=== PATIENT | male | born 1955 | race Caucasian/White ===

== ENCOUNTER → 2019-07-11 | Outpatient (CLI) | payer OTHER ==
[2019-07-11 13:01] LABS: Basophils % (A) 0 %; Eosinophils # (A) 0.3 k/uL (0-0.7); Eosinophils % (A) 4 %; HCT 48.5 % (39.0-53.0); HGB 16.4 gm/dL (13.0-17.5); Lymphocytes # (A) 2.3 k/uL (1.0-4.8); Lymphocytes % (A) 30 %; MCH 31.2 pg (25.0-35.0); MCHC 33.8 g/dL (31.0-37.0); MCV 92.3 fL (80.0-100.0); Mean Platelet Volume 7.6; Monocytes # (A) 0.4 k/uL (0-1.0); Monocytes % (A) 5 %; Neutrophils # (A) 4.4 k/uL (1.3-7.7); Neutrophils % (A) 57 %; Platelet Count 250 k/uL (150-450); RBC 5.25 m/uL (4.30-5.90); RDW 13.2 % (11.5-15.5); WBC 7.7 k/uL (3.8-10.6)
== END ==
LOC: LABPAT 11:41
PROVIDERS: ATTEND Anesthesiology
DX: Z01.812 Encounter for preprocedural laboratory examination (principal)
CPT/HCPCS: 36415; 85025

== ENCOUNTER 2019-07-13 12:08 | Day surgery (SDC) | payer OTHER ==
[2019-07-10 14:22] VITALS: BMI 25.8
[~2019-07-13 12:08] MED LIST: DEXAMETHASONE SOD PHOSPHATE 10 MG/ML 1 ML VIAL IV ONE; HEPARIN SODIUM,PORCINE 5,000 UNIT/ML 1 ML VIAL SQ ONE; LIDOCAINE 1% 20 ML VIAL (10MG/ML) FOR IV START INTRADERMA PRN; MIDAZOLAM 2 MG/2 ML VIAL IV PRN; fentaNYL (PF) 50 MCG/ML 2 ML AMP IV PRN
[2019-07-13] MEDS: LACTATED RINGERS 1,000 ML IV SCH (13:10)
[2019-07-13] MEDS ORDERED: LIDOCAINE 1% 20 ML VIAL (10MG/ML) FOR IV START INTRADERMA ONE (13:10)
[2019-07-13] MEDS ORDERED: ONDANSETRON 4 MG/2 ML VIAL IVP ONE (13:15)
[2019-07-13 13:16] VITALS: RESP 16
[2019-07-13] MEDS ORDERED: LIDOCAINE 1% INJ 10MG/ML (20 ML MDV) ONE (14:02)
[2019-07-13] MEDS ORDERED: MIDAZOLAM 2 MG/2 ML VIAL ONE (14:02)
[2019-07-13] MEDS ORDERED: NEOSTIGMINE 1 MG/ML 10 ML VIAL ONE (14:02)
[2019-07-13] MEDS ORDERED: SUCCINYLCHOLINE CHLORIDE 100 MG/5 ML SYR IV ONE (14:02)
[2019-07-13] MEDS ORDERED: fentaNYL (PF) 50 MCG/ML 2 ML AMP ONE (14:02)
[2019-07-13] MEDS ORDERED: ROCURONIUM BROMIDE 10 MG/ML 5 ML VIAL IV ONE (14:02)
[2019-07-13] MEDS ORDERED: KETOROLAC 30 MG/ML 1 ML VIAL ONE (14:02)
[2019-07-13] MEDS ORDERED: hydrALAZINE HCL 20 MG/ML 1 ML VIAL ONE (14:02)
[2019-07-13] MEDS ORDERED: PROPOFOL 10 MG/ML 20 ML VIAL IV ONE (14:02)
[2019-07-13] MEDS ORDERED: GLYCOPYRROLATE 0.2 MG/ML 2 ML VIAL ONE (14:02)
--- NOTE | 2019-07-13 14:03 | P.ANPRN ---
Procedure Note - Anesthesia - Nerve Block Performed Bilateral Transversus Abdominis Single Time Out Performed: Yes Date of Procedure: 07/13/19 Procedure Start Time: 13:50 Procedure Stop Time: 14:04 Location of Patient: PreOp Indication: Acute Post-Operative Pain, Requested by Surgeon Sedation Type: Sedate with meaningful contact maintained Preparation: Sterile Prep, Sterile Dressing Position: Supine Catheter: None Needle Types: On-Q Needle Gauge: 20 Ultrasound used to visualize needle placement: Yes Ultrasound used to observe medication spread: Yes Injectate: Other (see comment) (ropivacaine 0.25% 25 ml per side) Blood Aspirated: No Pain Paresthesia on Injection Noted: No Resistance on Injection: Normal Image Stored and Saved: Yes Events: Uneventful and Well Tolerated
[2019-07-13] MEDS ORDERED: BUPIVACAIN-EPI 0.5%-1:200,000 30 ML VIAL SQ ONE ×2 (14:28)
[2019-07-13 16:07] VITALS: TEMP 97.1
--- NOTE | 2019-07-13 16:39 | P.OP ---
Date of Procedure: 07/13/19 Preoperative Diagnosis: Bilateral inguinal hernia Postoperative Diagnosis: Bilateral inguinal hernia Procedure(s) Performed: Robotic bilateral inguinal hernia repair with mesh Anesthesia: MARK Surgeon: Kun Canela Pathology: none sent Condition: stable Disposition: same day Indications for Procedure: 63-year-old male presented to the surgery clinic with complaints of groin pain. On exam, he was noted to have an extremely large right-sided inguinal hernia that likely contained bowel on exam. He also was noted to have a left-sided inguinal hernia that was large, however smaller than the right side. Secondary to this, recommendation was made for bilateral inguinal hernia repair. The patient was explained the risks, benefits and alternatives to the procedure and did provide consent prior to attending the operating suite. Operative Findings: Bilateral inguinal hernia, right side indirect hernia containing loops of small bowel, left-sided indirect inguinal hernia Description of Procedure: The patient was brought back to the operating suite and placed in supine position. After general endotracheal anesthesia was induced, a Greer catheter was placed under sterile conditions. Arms were then tucked to the sides bilaterally and all pressure points were padded. SCDs were also placed in his bilateral lower extremities and were working throughout the entire case. Preoperative antibiotics were given prior to the incision. A timeout was performed with all team members in agreement with correct patient, procedure and location. A supraumbilical incision was made approximately 20 cm superior to the pubic symphysis. The abdomen was then entered under direct visualization with a Visiport. At this point pneumoperitoneum was achieved. 2 additional incisions were made approximately 11 cm lateral to the supraumbilical incision and 8 mm trochars were placed. The patient was then placed in Trendelenburg position and the hernia sites were clearly visualized bilaterally. The left-sided inguinal hernia was noted to be an indirect hernia. The right-sided inguinal hernia was noted to be a large indirect inguinal hernia that contained multiple loops of small bowel. The bowel was manually reduced. 30 mL of local anesthetic was then placed in the anticipated peritoneal layers of the anticipated flaps. The robot was then docked appropriately. Incision was then made just lateral to the medial umbilical ligament on the right side with the monopolar scissors and the peritoneal flap was created and was taken down towards Hunter's ligament.The flap was then extended laterally. Attention was then turned to the indirect inguinal hernia. The sac was then freed from the cord all while preserving the cord structures. At this point the indirect hernia was reduced. Once the entire space was appropriately dissected out, attention was turned to the left side. Incision was then made just lateral to the medial umbilical ligament on the left side with the monopolar scissors and the peritoneal flap was created and was taken down towards Hunter's ligament.The flap was then extended laterally. Attention was then turned to the indirect inguinal hernia. The sac was then freed from the cord all while preserving the cord structures. At this point the indirect hernia was reduced. Once the entire space was appropriately dissected out, we brought the laparoscopic anatomicparietexprogripmesh and unrolled it over the hernia sites. Once appropriately in place the peritoneal flaps were closed using a running 2-0 Vlock suture. Once this was completed we removed all the robotic instruments and undocked the robot. The supraumbilical fascial incision was closed with a 0 Vicryl suture using the Ramsey-Pili device. This was done under laparoscopic guidance. All skin incisions were then closed with 4-0 Vicryl suture. The Greer catheter was removed. The patient was awakened and taken to the recovery unit in stable condition
[2019-07-13] MEDS ORDERED: hydrALAZINE HCL 20 MG/ML 1 ML VIAL IVP ONE (17:26)
[2019-07-13 18:33] VITALS: BP 149/82; PULSE 82
== END 2019-07-13 19:23 | disposition home or self-care (01) ==
LOC: OR 12:08
PROVIDERS: ATTEND Surgery
DX: K40.20 Bilateral inguinal hernia, without obstruction or gangrene, not specified as recurrent (principal); K08.89 Other specified disorders of teeth and supporting structures; F17.220 Nicotine dependence, chewing tobacco, uncomplicated; Z87.820 Personal history of traumatic brain injury; Z98.890 Other specified postprocedural states
CPT/HCPCS: 49650; S2900; 64488